=== PATIENT | female | born 1995 | race Caucasian/White ===

== ENCOUNTER 2016-05-12 22:25 | Emergency (ER) | payer SELFPAY ==
[~2016-05-12] VITALS: Ht 152.4 cm; Wt 63.5 kg
[2016-05-12 22:28] VITALS: BP 109/82
== END 2016-05-12 23:51 | disposition home or self-care (01) ==
LOC: ED 23:50
DX: S39.012A Strain of muscle, fascia and tendon of lower back, initial encounter (principal); V43.52XA Car driver injured in collision with other type car in traffic accident, initial encounter; Y93.89 Activity, other specified; Y92.89 Other specified places as the place of occurrence of the external cause; Y99.8 Other external cause status
CPT/HCPCS: 99283

== ENCOUNTER 2019-07-06 21:55 | Emergency (ER) | payer MEDICAID ==
[~2019-07-06] VITALS: Ht 154.9 cm; Wt 85.2 kg
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
[2019-07-06] MEDS ORDERED: KETOROLAC 30 MG/1 ML ONE (22:15)
--- NOTE | 2019-07-06 22:27 | NUR ---
PATIENT TO XRAY
[2019-07-06] MEDS ORDERED: KETOROLAC 30 MG/1 ML IM ONE (22:30)
--- NOTE | 2019-07-06 22:37 | NUR ---
PATIENT BACK FROM XRAY, MEDICATED PER EMAR. ICE PACKS APPLIED TO EFFECTED AREAS, FEET/ANKLES ELEVATED
[2019-07-06 23:08] VITALS: BP 101/80
--- NOTE | 2019-07-07 00:12 | NUR ---
Patient given discharge instructions and they have confirmed that they understand the instructions. Patient wheeled to discharge accompanied by friend for safe transportation
== END 2019-07-07 00:14 | disposition home or self-care (01) ==
LOC: ED 23:02
DX: M25.572 Pain in left ankle and joints of left foot (principal); M25.562 Pain in left knee; V49.49XA Driver injured in collision with other motor vehicles in traffic accident, initial encounter; Y93.89 Activity, other specified; Y92.488 Other paved roadways as the place of occurrence of the external cause; Y99.8 Other external cause status
CPT/HCPCS: 73564; 73610; 96372; 99284; J1885

== ENCOUNTER 2020-08-16 09:43 | Emergency (ER) | payer MEDICAID, OTHER ==
[~2020-08-16] VITALS: Ht 154.9 cm; Wt 87.0 kg
[2020-08-16 10:10] VITALS: BP 141/79
[2020-08-16] MEDS ORDERED: FLUORESCEIN OPHTHALMIC 1 MG STRIP ONE (10:26)
[2020-08-16] MEDS ORDERED: PROPARACAINE OPHTH 0.5%, 15ML ONE (10:26)
--- NOTE | 2020-08-16 10:29 | NUR ---
INITAL CONTACT WITH PATIENT: "MIGRAINE" WITH R EYE PAIN A COUPLE MONTHS. REDNESS TO R EYE SINCE THURSDAY, PHOTOPHOBIA. PT DENIES N/V, BLURRED VISION. PT WITH STEADY GAIT TO EXAM CHAIR. VSS. JENKINS.
[2020-08-16] MEDS ORDERED: PROPARACAINE OPHTH 0.5%, 15ML EACHEYE ONE (10:30)
[2020-08-16] MEDS ORDERED: FLUORESCEIN OPHTHALMIC 1 MG STRIP EACHEYE ONE (10:30)
--- NOTE | 2020-08-16 11:16 | NUR ---
Patient given discharge instructions and they have confirmed that they understand the instructions. Patient ambulatory with steady gait. NAD, all questions answered appropriately, denies additional needs at this time. No personal belongings left in room after discharge.
== END 2020-08-16 11:17 | disposition home or self-care (01) ==
LOC: ED 11:09
DX: H10.021 Other mucopurulent conjunctivitis, right eye (principal); R51.9 Headache, unspecified
CPT/HCPCS: 99283